=== PATIENT | male | born 1995 | race Caucasian/White ===

== ENCOUNTER 2023-03-13 10:51 | Emergency (ER) | payer BC, SELFPAY ==
[2023-03-13] MEDS ORDERED: Lidocaine 1% w/Epinephrine 1:100K 20 ML VIAL ONE ×2 (11:23→11:24)
== END 2023-03-13 12:03 | disposition home or self-care (01) ==
LOC: ERS 10:51
DX: L05.91 Pilonidal cyst without abscess (principal)
CPT/HCPCS: 10060; 96372